=== PATIENT | male | born 1955 | race Caucasian/White ===

== ENCOUNTER 2019-03-10 09:15 | Emergency (ER) | payer OTHER ==
[~2019-03-10] VITALS: Ht 172.7 cm; Wt 86.2 kg
[2019-03-10 09:50] VITALS: BP 127/87
--- NOTE | 2019-03-10 09:52 | NUR ---
ED Nurse Note:pt. came with c/o abd pain and arm pain and med refill, seen by ER MD visual acuity was done
--- NOTE | 2019-03-10 10:08 | NUR ---
ED Nurse Note:pt. left ER before being discharged ,he is ambulatory with steady gait and A/Ox4, he was given food per request, he said he doesn't want to wait anymore and going to [facility] now, ER MD was notified
[2019-03-10 10:29] VITALS: BP 127/87
--- NOTE | 2019-03-10 10:59 | NUR ---
Social Work This Sw received a consult to assist due to homelessness. Patient eloped from the ED before SW could see the patient.
--- NOTE | 2019-03-12 17:49 | Emergency Room Report ---
History of Present Illness General Chief Complaint: Gastrointestinal Illness Source: Patient Present Illness HPI Patient is a 63-year-old male who presented for Medication refill. Patient had recently been prescribed tramadol. Patient had been able to fill this medication. He did not attempt to take this prescription to a pharmacy. Patient states that he had patient had recently left his boarding care. Patient reports having some increased generalized weakness. Allergies: Coded Allergies: No Known Allergies (Unverified , 03/10/19) Patient History Past Medical History: see triage record Reviewed Nursing Documentation: PMH: Agreed; PSxH: Agreed Nursing Documentation-PMH Past Medical History: No History, Except For Hx Hypertension: Yes - hypotension Hx Cancer: Yes - skin History Of Psychiatric Problem: Yes - schizophrenic, chemical imbalance Review of Systems All Other Systems: limited - Poor historian Physical Exam Vital Signs Date Time Temp Pulse Resp B/P (MAP) Pulse Ox O2 Delivery O2 Flow Rate FiO2 03/10/19 09:27 98.2 89 20 127/87 (100) 96 Room Air General Appearance: well appearing, no apparent distress Head: normocephalic, atraumatic ENT: hearing grossly normal, normal voice Neck: full range of motion, supple Respiratory: normal inspection, lungs clear, no respiratory distress, speaking full sentences Cardiovascular #1: normal inspection Gastrointestinal: normal inspection, non tender, soft Neurologic: normal inspection, alert, oriented x3, responsive, normal gait Psychiatric: mood/affect normal Skin: no rash Medical Decision Making Diagnostic Impression: Primary Impression: Gastrointestinal symptom ER Course Patient presented for medication refill. Differential diagnosis include was not limited to medication reaction, psychosis, gastroenteritis among others. Patient has a benign exam and does not appear to require any further imaging or laboratory testing at this time. Patient was pending a forensic social worker consult when he eloped from the emergency department without notifying staff. Patient did not appear to have any emergency condition at this time. Last Vital Signs Date Time Temp Pulse Resp B/P (MAP) Pulse Ox O2 Delivery O2 Flow Rate FiO2 03/10/19 10:29 98.2 82 20 127/87 96 Room Air Status: improved Disposition: ELOPED Condition: Stable Referrals: KENRICK CHU,REFERRING (PCP) Clyde Howard MD March 12, 2019 17:49
== END 2019-03-10 10:10 | disposition left against medical advice (07) ==
LOC: EMR 10:08
DX: R10.9 Unspecified abdominal pain (principal); Z53.21 Procedure and treatment not carried out due to patient leaving prior to being seen by health care provider
CPT/HCPCS: 99282